=== PATIENT | female | born 1995 | race African-American/Black ===

== ENCOUNTER 2021-05-09 23:13 | Emergency (ER) | payer MEDICAID ==
[~2021-05-09] VITALS: Ht 165.1 cm; Wt 62.0 kg
[2021-05-09 23:30] VITALS: BP 122/77
[2021-05-10] MEDS: ACETAMINOPHEN 325MG TABLET PO ONE (01:23)
== END 2021-05-10 01:35 | disposition home or self-care (01) ==
LOC: ER 23:13
DX: M25.572 Pain in left ankle and joints of left foot (principal)
CPT/HCPCS: 99282